=== PATIENT | female | born 1995 | race Caucasian/White ===

== ENCOUNTER 2019-05-18 17:46 | Emergency (ER) | payer SELFPAY ==
--- OUTSIDE RECORDS SUMMARY | 2019-05-18 17:48 | XMS REPORT | Summary of Care ---
:1995 Author Organization [facility] Address [address] [place] [address] Care Team Providers Name Role Phone Dulce Ramirez MD Insurance Hmo Pcp, Patient Does Not Have A Primary Care Provider Reason for Visit Reason Comments Ear Pain Auth/Cert Status Reason Specialty Diagnoses / Referred By Referred To Procedures Contact Contact Emergency Medicine Ed-Emergency Dept [address] [place] [phone] Encounter Details Date Type Department Care Team Description 03/19/2019 Emergency [facility]Emergency Hinojosa Richard L, Throat pain (Primary Dx ); Department GRAIN [employer] FARM[employer] Acute otitis externa of right ear, unspecified type [address] [place] [address] DR [place]regon [place] [id number] [place], [place] [phone] Allergies Active Allergy Reactions Severity Noted Date Comments Vancomycin Hives 01/20/2019 documented as of this encounter (statuses as of 03/19/2019) Medications Medication Sig Dispensed Refills Start Date End Date Status vitamin w/FA Take 1 Tab by 100 Tab 3 04/24/2015 Active (PRENATABS RX) tablet mouth daily. ferrous sulfate 325 mg Take 1 Tab by 60 Tab 2 04/24/2015 Active (65 mg iron) tablet mouth 2 (two) times daily. vitamin w/FA Take 1 tablet by 100 tablet 3 02/28/2016 Active tablet mouth daily. docusate calcium 240 mg Take 1 capsule 60 capsule 1 02/28/2016 Active capsule by mouth once daily as needed for Constipation. ibuprofen 600 mg tablet Take 1 tablet by 60 tablet 1 02/28/2016 Active mouth every 6 (six) hours as needed for Pain (scale 1-3) or Pain (scale 4-6). Take with food or milk. proMETHazine 25 mg Take 1 tablet by 12 tablet 0 02/08/2017 Active tablet mouth every 6 (six) hours as needed for Nausea and Vomiting (N/V). ondansetron (ZOFRAN ODT) Take 1 tablet by 10 tablet 0 10/01/2017 Active 4 mg disintegrating mouth every 8 tablet (eight) hours as needed for Nausea and Vomiting (N/V). cyclobenzaprine 10 mg Take 1 tablet by 12 tablet 0 11/18/2017 Active tablet mouth 3 (three) times daily as needed for Muscle Spasms (pain). ibuprofen 600 mg tablet Take 1 tablet by 20 tablet 0 11/18/2017 Active mouth every 6 (six) hours as needed for Pain (scale 1-3). ondansetron (ZOFRAN) 4 Take 1 tablet by 12 tablet 0 02/07/2018 Active mg tablet mouth every 8 (eight) hours as needed for Nausea and Vomiting (N/V). benzonatate 100 mg Take 1 capsule 14 capsule 0 02/21/2018 Active capsule by mouth 3 (three) times daily as needed for Cough. TRAMADOL 50 mg Take 1 tablet by 10 tablet 0 01/20/2019 Active tabletIndications: mouth every 6 Pharyngitis, unspecified (six) hours as etiology needed for Pain (scale 4-6). amoxicillin-pot Take 1 tablet by 30 tablet 0 01/20/2019 Active clavulanate 500 mg mouth 3 (three) (AUGMENTIN) 500-125 mg times daily. tabletIndications: Pharyngitis, unspecified etiology methylPREDNISolone Take by mouth 21 Each 0 01/20/2019 Active (MEDROL, ARETHA,) 4 mg SEE-INSTRUCTIONS tabletsIndications: . follow package Pharyngitis, unspecified directions etiology ehqakson-jpblfufgu-gsmkx Place 5 Drops in 10 mL 0 03/19/2019 Active cortisone 3.5-10,000-1 right ear 4 0 mg/mL-unit/mL-% otic (four) times suspIndications: Acute daily for 7 otitis externa of right days. ear, unspecified type documented as of this encounter (statuses as of 03/19/2019) Active Problems Problem Noted Date Pharyngitis 01/20/2019 Gallstone pancreatitis 10/08/2017 Status post delivery 02/27/2016 Overview: 02/26/16 38 weeks gestation of 02/26/2016 Labor and delivery indication for care or intervention 02/26/2016 Hemorrhoids in , third trimester 01/31/2016 Uterine size-date discrepancy, antepartum, third trimester 01/31/2016 Heartburn during in third trimester 12/27/2015 Antepartum anemia in third trimester 12/27/2015 Tubal ligation status 2015 High-risk 11/15/2015 UTI in 11/15/2015 Headache in 11/15/2015 ASCUS favor benign 10/22/2015 Overview: 10/2015 HPV negative, repeat in 3 years History of pyelonephritis during 04/22/2015 documented as of this encounter (statuses as of 03/19/2019) Resolved Problems Problem Noted Date Resolved Date Need for Tdap vaccination-given 2015 2015 12/27/2015 Needs flu shot-given 2015 2015 12/27/2015 39 weeks gestation of 04/22/2015 10/13/2015 Maternal varicella, non-immune 04/22/2015 02/26/2016 Right flank pain 03/20/2015 04/22/2015 Pyelonephritis 12/05/2014 03/20/2015 with flank pain, antepartum 12/04/2014 03/20/2015 documented as of this encounter (statuses as of 03/19/2019) Immunizations Name Administration Dates Next Due Influenza Virus Vaccine Quad IM 3+ YRS 2015, 03/03/2015 Tdap 2015, 03/03/2015 Varicella (varivax)(chicken pox) 04/24/2015 documented as of this encounter Social History Tobacco Use Types Packs/Day Years Used Date Current Every Day Smoker Cigarettes 0.1 1 Smokeless Tobacco: Never Used Comments: "when I decide to quit, I don't need no help with it" Alcohol Use Drinks/Week oz/Week Comments No 0 Standard drinks or equivalent 0.0 Sex Assigned at Date Recorded Not on file Job Start Date Occupation Industry Not on file Not on file Not on file Travel History Travel Start Travel End No recent travel history available. documented as of this encounter Last Filed Vital Signs Vital Sign Reading Time Taken Comments Blood Pressure 109/69 03/19/2019 4:01 PM POSTMASTER RELIEF Pulse 111 03/19/2019 4:01 PM [employer] Temperature 36.4 C (97.6 F) 03/19/2019 4:01 PM POSTMASTER RELIEF Respiratory Rate 16 03/19/2019 4:01 PM POSTMASTER RELIEF Oxygen Saturation 100% 03/19/2019 4:01 PM POSTMASTER [employer]IEF Inhaled Oxygen Concentration - - Weight 59 kg (130 lb 1.1 oz) 03/19/2019 4:01 PM [employer]MASTER [employer]IEF Height - - Body Mass Index 23.79 10/08/2017 11:18 PM CDT documented in this encounter Discharge Instructions Richard Mobley APN - 03/19/2019DIAGNOSIS 1. Right otitis externa NO LIFE-THREATENING FINDINGS ON TODAY'S EXAM. PROCEDURES IN THE ER TODAY: Physical exam and laboratory studies MEDICATIONS ADMINISTERED IN THE ER TODAY: none YOUR PRESCRIPTIONS AND [id number] MEDICATION RECOMMENDATIONS: Polymyxin/hydrocortisone/neomycin drops SPECIAL CARE INSTRUCTIONS: Return for any new, persistent or worsening symptoms, otherwise follow up with your primary care provider within three days. FOLLOW-UP RECOMMENDATIONS: RECOMMEND FOLLOW-UP WITH A PRIMARY CARE PROVIDER OR SPECIALIST IN 2-5 DAYS, ESPECIALLY IF NO IMPROVEMENT IN SYMPTOMS. TO FOLLOW-UP WITHIN THE [facility]ARE [facility], TRY THESE OPTIONS (CLINIC APPOINTMENTS AVAILABLE ON [id number] BASIS): 1. SCHEDULE AN APPOINTMENT ONLINE AT WWW[facility] 2. OR CALL THE [facility] ACCESS CENTER AT OR 3. OR CALL YOUR [facility] PHYSICIAN'S OFFICE DIRECTLY IF YOU ARE ALREADY AN ESTABLISHED [facility] PATIENT. OR, YOU MAY FOLLOW-UP WITH A PROVIDER OF YOUR CHOICE, SUCH : 1. A PHYSICIAN OF YOUR CHOICE 2. [facility], . LOCATIONS IN [facility] 3. [facility], [address] [place] [address]; RETURN TO ER FOR WORSENING OF SYMPTOMS. Care of condition, home medications, and to seek immediate attention for any worsening or new symptoms such as chest pain, shortness of breath, weakness on one side of the body, generalized weakness, fever, increase in pain, nausea, vomiting, unusual bleeding, confusion, decreased level of consciousness or for any symptoms that you find concerning or worrisome. AttachmentsThe following attachments cannot be sent through Care Everywhere.Hydrocortisone; Neomycin; Polymyxin B ear solution (Slovak)External Ear Infection (Adult) (Slovak)documented in this encounter Plan of Treatment Health Maintenance Due Date Last Done Comments HPV VACCINES (1 - Female 2004 2-dose series) PAP SMEAR 10/12/2018 10/13/2015 INFLUENZA VACCINE (#1) 2018 2015, 03/03/2015 DTaP,Tdap,and Td Vaccines (3 12/12/2025 2015, - Td) 03/03/2015 PNEUMOCOCCAL 0-64 YEARS Aged Out No longer eligible based COMBINED SERIES on patient's age to complete this topic documented as of this encounter Procedures Procedure Name Priority Date/Time Associated Diagnosis Comments POCT RAPID STREP ETHEL 03/19/2019 4:55 PM Throat pain Results for this SCREEN FOR GROUP A [employer] procedure are in the results section. documented in this encounter Results POCT RAPID STREP SCREEN FOR GROUP A (03/19/2019 4:55 PM [employer]IE[employer]) POCT GP A STREP Negative Negative - Negative Specimen Swab - THROAT documented in this encounter Visit Diagnoses Diagnosis Throat pain - Primary Acute otitis externa of right ear, unspecified type documented in this encounter Insurance Payer Benefit Plan Subscriber ID Effective Dates Phone Address Type / Group [facility] [id number] 2019-Presshelley [phone] [address] PPO/POS [place] - OUT OF t 7 [id number] [place] [address] documented as of this encounter
--- OUTSIDE RECORDS SUMMARY | 2019-05-18 17:48 | XMS REPORT | Summary of Care ---
:1995 Author Organization [facility] Address [address] [place] [address] Support Name Relationship Address Phone Sonny Ramos Unavailable Unavailable Luba Ramos Unavailable [address] [place] [address] Care Team Providers Name Role Phone Dulce Ramirez MD Insurance Hmo Pcp, Patient Does Not Have A Primary Care Provider Reason for Visit Reason Comments Neck Pain Encounter Details Date Type Department Care Team Description 03/28/2019 Nurse Triage [facility] Josefa Orozco, Neck Pain [address] [place] [phone] [address] [facility] [phone] [place] [address] Allergies Active Allergy Reactions Severity Noted Date Comments Vancomycin Hives 01/20/2019 documented as of this encounter (statuses as of 03/28/2019) Medications Medication Sig Dispensed Refills Start Date [...] . follow package Pharyngitis, unspecified directions etiology documented as of this encounter (statuses as of 03/28/2019) Active Problems Problem Noted Date Pharyngitis 01/20/2019 [...] as of this encounter (statuses as of 03/28/2019) Resolved Problems Problem Noted Date Resolved Date Need for Tdap vaccination-given 2015 2015 12/27/2015 Needs flu shot-given 2015 2015 12/27/2015 39 weeks gestation of 04/22/2015 10/13/2015 Maternal varicella, non-immune 04/22/2015 02/26/2016 Right flank pain 03/20/2015 04/22/2015 Pyelonephritis 12/05/2014 03/20/2015 with flank pain, antepartum 12/04/2014 03/20/2015 documented as of this encounter (statuses as of 03/28/2019) Immunizations Name Administration Dates Next Due Influenza [...] of this encounter Last Filed Vital Signs Not on filedocumented in this encounter Plan of Treatment Health Maintenance Due Date Last Done Comments PNEUMOCOCCAL 0-64 YEARS COMBINED SERIES (1 12/14/1999 of 1 - PPSV23) HPV VACCINES (1 - Female 2-dose series) 2004 PAP SMEAR 10/12/2018 10/13/2015 INFLUENZA VACCINE (#1) 2018 2015, 03/03/2015 DTaP,Tdap,and Td Vaccines (3 - Td) 12/12/2025 2015, 03/03/2015 documented as of this encounter Results Not on filedocumented in this encounter Insurance Payer Benefit Plan / Subscriber ID Effective Phone Address Type Group Dates [facility] [place]ITA [id number] 2017-Pres [phone] [address] HMO ADVANTAGE HMO ent [id number] [place] [address] [employer] FAMILY FAMILY [id number] 2015-Pres [address] O BOX Agency [employer] ent [id number] [place] [address] [facility] [id number] 2019-Prese [phone] [address] PPO/POS - OUT OF STATE nt [id number] [place] [address] documented as of this encounter
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
--- OUTSIDE RECORDS SUMMARY | 2019-05-18 17:49 | XMS REPORT ---
:1993 [facility] Address [address] Banda [address] [place] [address] Care Team Providers Name Role Phone Unavailable Unavailable Unavailable Problems This patient has no known problems. Allergies, Adverse Reactions, Alerts This patient has no known allergies or adverse reactions. Medications This patient has no known medications.
[2019-05-18] MEDS ORDERED: IBUPROFEN 400 MG TAB ONE (18:18)
--- NOTE | 2019-05-18 18:32 | EDPHYS ---
Physician Documentation [facility] Name: Anai Black Age: 23 yrs Sex: Female : 1995 Arrival Date: 05/18/2019 Time: 17:48 Bed 17 Private MD: ED Physician Vipul Devine HPI: 05/17 18:02 This 23 yrs old Female presents to ER via Unassigned with complaints of Knee syed Pain. 18:02 The patient presents with decreased range of motion, pain, tenderness. The complaints syed affect the right knee and right tamayo. Context: The problem was sustained outdoors, [place] a park. Onset: The symptoms/episode began/occurred 1 day(s) ago. Modifying factors: The symptoms are alleviated by remaining still, the symptoms are aggravated by movement, weight bearing, bending knee. Associated signs and symptoms: The patient has no apparent associated signs or symptoms. Treatment prior to arrival includes: mattie wrap. Severity of symptoms: At their worst the symptoms were mild, in the emergency department the symptoms are unchanged. The patient has not experienced similar symptoms in the past. 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 - Family history:: not pertinent. - Social history:: Smoking status: Patient denies any tobacco usage or history of. ROS: 18:02 Constitutional: Negative for fever, chills, and weight loss, Eyes: Negative for injury, syed pain, redness, and discharge, ENT: Negative for injury, pain, and discharge, Neck: Negative for injury, pain, and swelling, Cardiovascular: Negative for chest pain, palpitations, and edema, Respiratory: Negative for shortness of breath, cough, wheezing, and pleuritic chest pain, Abdomen/GI: Negative for abdominal pain, nausea, vomiting, diarrhea, and constipation, Back: Negative for injury and pain, : Negative for injury, bleeding, discharge, and swelling, Skin: Negative for injury, rash, and discoloration, Neuro: Negative for headache, weakness, numbness, tingling, and seizure, Psych: Negative for depression, anxiety, suicide ideation, homicidal ideation, and hallucinations, Allergy/Immunology: Negative for hives, rash, and allergies, Endocrine: Negative for neck swelling, polydipsia, polyuria, polyphagia, and marked weight changes, Hematologic/Lymphatic: Negative for swollen nodes, abnormal bleeding, and unusual bruising. 18:02 MS/extremity: Positive for decreased range of motion, pain, swelling, tenderness, of the right knee and right tamayo. Exam: 18:02 Constitutional: This is a well developed, well nourished patient who is awake, alert, syed and in no acute distress. Head/Face: Normocephalic, atraumatic. Eyes: Pupils equal round and reactive to light, extra-ocular motions intact. Lids and lashes normal. Conjunctiva and sclera are non-icteric and not injected. Cornea within normal limits. Periorbital areas with no swelling, redness, or edema. ENT: Nares patent. No nasal discharge, no septal abnormalities noted. Tympanic membranes are normal and external auditory canals are clear. Oropharynx with no redness, swelling, or masses, exudates, or evidence of obstruction, uvula midline. Mucous membranes moist. Neck: Trachea midline, no thyromegaly or masses palpated, and no cervical lymphadenopathy. Supple, full range of motion without nuchal rigidity, or vertebral point tenderness. No Meningismus. Chest/axilla: Normal chest wall appearance and motion. Nontender with no deformity. No lesions are appreciated. Cardiovascular: Regular rate and rhythm with a normal S1 and S2. No gallops, murmurs, or rubs. Normal PMI, no JVD. No pulse deficits. Respiratory: Lungs have equal breath sounds bilaterally, clear to auscultation and percussion. No rales, rhonchi or wheezes noted. No increased work of breathing, no retractions or nasal flaring. Abdomen/GI: Soft, non-tender, with normal bowel sounds. No distension or tympany. No guarding or rebound. No evidence of tenderness throughout. Back: No spinal tenderness. No costovertebral tenderness. Full range of motion. Skin: Warm, dry with normal turgor. Normal color with no rashes, no lesions, and no evidence of cellulitis. MS/ Extremity: Pulses equal, no cyanosis. Neurovascular intact. Full, normal range of motion. Neuro: Awake and alert, GCS 15, oriented to person, place, time, and situation. Cranial nerves II-XII grossly intact. Motor strength 5/5 in all extremities. Sensory grossly intact. Cerebellar exam normal. Normal gait. Psych: Awake, alert, with orientation to person, place and time. Behavior, mood, and affect are within normal limits. Vital Signs: 18:03 BP 99 / 76; Pulse 93; Resp 18; Temp 98.1; Pulse Ox 100% on R/A; Weight 54.43 kg; Height dm5 5 ft. 2 in. (157.48 cm); Pain 8/10; 19:00 BP 102 / 81; Pulse 92; Resp 17 S; Pulse Ox 100% on R/A; ca1 18:03 Body Mass Index 21.95 (54.43 kg, 157.48 cm) dm5 MDM: 17:58 [facility] 18:06 Data reviewed: vital signs, nurses notes, lab test result(s), radiologic studies, [facility] films. 05/17 18:02 Order name: Knee Right 3 View XRAY [facility] 05/17 18:02 Order name: Tib Fib Right [facility] 05/17 18:02 Order name: Urine Dipstick-Ancillary (obtain specimen); Complete Time: 19:16 [facility] 05/17 18:02 Order name: Urine Test (obtain specimen); Complete Time: 19:16 [facility] 05/17 18:02 Order name: Ice pack; Complete Time: 18:03 [facility] 05/17 18:29 Order name: Knee Immobilizer; Complete Time: 18:50 [facility] 05/17 18:29 Order name: Crutches; Complete Time: 18:50 [facility] Administered Medications: 19:00 Drug: Motrin 400 mg Route: PO; ca1 19:17 Follow up: Response: No adverse reaction ca1 Disposition: 05/18/19 18:32 Discharged to Home. Impression: Pain in right knee, Fall due to bumping against object, Sprain of other specified parts of right knee. - Condition is Stable. - Discharge Instructions: Joint Pain, How to Use a Knee Brace, Knee Pain, Cryotherapy, [id number], Cryotherapy, Knee Pain, [id number]. - Prescriptions for Ibuprofen 600 mg Oral Tablet - take 1 tablet by ORAL route every 8 hours As needed take with food; 21 tablet. - Medication Reconciliation Form, Thank You Letter, Antibiotic Education, Prescription Opioid Use form. - Follow up: Private Physician; When: 2 - 3 days; Reason: Recheck today's complaints, Continuance of care, Re-evaluation by your physician. Follow up: Brody Heck MD; When: 2 - 3 days; Reason: Recheck today's complaints, Re-evaluation by your physician. - Problem is new. - Symptoms have improved. Signatures: Dispatcher [employer] EDDE Vipul Devine MD MD cha Acob, Cheryl, RN RN ca1 Corrections: (The following items were deleted from the chart) 19:18 18:32 05/18/2019 18:32 Discharged to Home. Impression: Pain in right knee; Fall due to ca1 bumping against object; Sprain of other specified parts of right knee. Condition is Stable. Forms are Medication Reconciliation Form, Thank You Letter, Antibiotic Education, Prescription Opioid Use. Follow up: Private Physician; When: 2 - 3 days; Reason: Recheck today's complaints, Continuance of care, Re-evaluation by your physician. Follow up: Brody Heck; When: 2 - 3 days; Reason: Recheck today's complaints, Re-evaluation by your physician. Problem is new. Symptoms have improved. syed
--- NOTE | 2019-05-18 18:32 | ER ---
Nurse's Notes [facility] Name: Anai Black Age: 23 yrs Sex: Female : 1995 Arrival Date: 05/18/2019 Time: 17:48 Bed 17 Private MD: Diagnosis: Pain in right knee;Fall due to bumping against object;Sprain of other specified parts of right knee Presentation: 05/17 18:03 Chief complaint: Patient states: playing volleyball yesterday, fell on and twisted dm5 right knee. Pain rated at 8/10. Coronavirus screen: The patient has NOT traveled to a country currently being monitored by the [facility] within the last 14 days. Proceed with normal triage procedures. The patient has NOT had contact with any known and/or suspected case of coronavirus. Proceed with normal triage procedures. Ebola Screen: Patient negative for fever greater than or equal to 101.5 degrees Fahrenheit, and additional compatible Ebola Virus Disease symptoms Patient denies exposure to infectious person. Patient denies travel to an Ebola-affected area in the 21 days before illness onset. No symptoms or risks identified at this time. Initial Sepsis Screen: Does the patient meet any 2 criteria? No. Patient's initial sepsis screen is negative. Does the patient have a suspected source of infection? No. Patient's initial sepsis screen is negative. Risk Assessment: Do you want to hurt yourself or someone else? Patient reports no desire to harm self or others. 18:03 Method Of Arrival: Ambulatory dm5 18:03 Acuity: SUYAPA 4 dm5 18:10 Onset of symptoms was May 18, 2019. 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 - Family history:: not pertinent. - Social history:: Smoking status: Patient denies any tobacco usage or history of. Screenin:10 Abuse screen: Denies threats or abuse. Denies injuries from another. Nutritional ca1 screening: No deficits noted. 18:10 Tuberculosis screening: No symptoms or risk factors identified. Fall Risk None ca1 identified. Assessment: 18:10 General: Appears in no apparent distress. comfortable, Behavior is calm, cooperative, ca1 appropriate for age. Pain: Complains of pain in right knee Pain currently is 8 out of 10 on a pain scale. Neuro: Level of Consciousness is awake, alert, obeys commands, Oriented to person, place, time, situation, Appropriate for age. Derm: Skin is intact, is healthy with good turgor, Skin is pink, warm \T\ dry. Musculoskeletal: Circulation, motion, and sensation intact. Capillary refill < 3 seconds, Range of motion: limited in right knee. 19:00 Reassessment: Patient appears in no apparent distress at this time. Patient is alert, ca1 oriented x 3, equal unlabored respirations, skin warm/dry/pink. Vital Signs: 18:03 BP 99 / 76; Pulse 93; Resp 18; Temp 98.1; Pulse Ox 100% on R/A; Weight 54.43 kg; Height dm5 5 ft. 2 in. (157.48 cm); Pain 8/10; 19:00 BP 102 / 81; Pulse 92; Resp 17 S; Pulse Ox 100% on R/A; ca1 18:03 Body Mass Index 21.95 (54.43 kg, 157.48 cm) dm5 ED Course: 17:48 Patient arrived in ED. mr 17:58 Vipul Devine MD is Attending Physician. syed 18:03 Arleen Pathak, REYMUNDO is Primary Nurse. ca1 18:05 Triage completed. dm5 18:10 Patient has correct armband on for positive identification. Placed in gown. Bed in low ca1 position. Call light in reach. Side rails up X 1. Pulse ox on. NIBP on. Ice pack to injury. 18:10 Arm band placed on. ca1 18:30 Brody Heck MD is Referral Physician. syed 18:35 Knee Right 3 View XRAY In Process Unspecified. EDMS 18:35 Tib Fib Right XRAY In Process Unspecified. EDMS 18:50 No provider procedures requiring assistance completed. Patient did not have IV access ca1 during this emergency room visit. Crutch training done. Knee immobilizer applied on right knee. Administered Medications: 19:00 Drug: Motrin 400 mg Route: PO; ca1 19:17 Follow up: Response: No adverse reaction ca1 Outcome: 18:32 Discharge ordered by . syed 19:17 Discharged to home ambulatory, with crutches. ca1 19:17 Condition: stable 19:17 Discharge instructions given to patient, Instructed on discharge instructions, follow up and referral plans. medication usage, Demonstrated understanding of instructions, follow-up care, medications, Prescriptions given X 1. 19:18 Patient left the ED. ca1 Signatures: Dispatcher [employer] Mary Mccurdy RN RN dmVipul Kevin MD MD cha Rivera, Mary mr Acob, Cheryl, RN RN ca1
[2019-05-18 19:25] VITALS: TEMP 98.1; O2SAT 100
[2019-05-18 19:27] VITALS: BP 102/81
--- NOTE | 2019-05-18 19:28 | RAD REPORT ---
EXAM DESCRIPTION: RAD - Tib Fib Right - 05/18/2019 6:34 pm CLINICAL HISTORY: PAIN, volleyball injury COMPARISON: No comparisons FINDINGS: No fracture is identified. There is no dislocation or periosteal reaction noted. No acute or suspicious bony finding. No foreign body or other soft tissue abnormality. IMPRESSION: Negative right tibia & fibula examination.
--- NOTE | 2019-05-18 19:28 | RAD REPORT ---
EXAM DESCRIPTION: RAD - Knee Right 3 View - 05/18/2019 6:34 pm CLINICAL HISTORY: PAIN, volleyball injury COMPARISON: No comparisonsNone. FINDINGS: No fracture, dislocation or periosteal reaction.No joint effusion seen. No joint space rebecca rowing. No foreign body or other soft tissue abnormality. IMPRESSION: Negative right knee. Clinical concerns for internal derangement or occult bony injury could be further assessed with MR im aging.
[2019-05-18 19:39] LABS: Urine Blood NEGATIVE (NEG); Urine Glucose NEGATIVE (NEG); Urine Protein NEGATIVE (NEG)
== END 2019-05-18 19:18 | disposition home or self-care (01) ==
LOC: ER 17:46
DX: S83.8X1A Sprain of other specified parts of right knee, initial encounter (principal); W18.00XA Striking against unspecified object with subsequent fall, initial encounter; Y93.9 Activity, unspecified; Y92.830 Public park as the place of occurrence of the external cause
CPT/HCPCS: 81003; 81025; 99284